=== PATIENT | male | born 1995 | race Caucasian/White ===

== ENCOUNTER 2021-01-26 18:57 | Emergency (ER) | payer OTHER ==
[2021-01-26 19:10] VITALS: BP 154/72; PULSE 98; RESP 18; TEMP 98.7
--- NOTE | 2021-01-26 19:52 | ED ---
Lower Extremity Injury HPI - General Chief Complaint: Extremity Injury, Lower Stated Complaint: Rt Knee Injury Time Seen by Provider: 01/26/21 19:11 Source: patient Mode of arrival: ambulatory Limitations: no limitations - History of Present Illness Initial Comments: 25-year-old male patient presents to the emergency department today for evaluation of right knee discomfort. Patient states he was laying softball about 3 days ago went to change directions well running and states that he had a fall, states that he injured his knee somehow. States that happened so fast he is unsure the exact mechanism of injury. States he has had knee swelling, states it feels very stiff. States he has difficulty straightening and are pending at all the way. Denies any redness or fever. States he has had issues with this knee in the past, no previous surgery. States pain worsens with walking. Patient denies any headache, neck pain, back pain, chest pain, s hortness of breath, dizziness, weakness, abdominal pain, nausea, vomiting, or difficulties with bowel movements or urination. - Related Data Home Medications Medication Instructions Recorded Confirmed Ibuprofen [Motrin Ib] 600 mg PO Q8H PRN 01/26/21 01/26/21 Allergies Allergy/AdvReac Type Severity Reaction Status Date / Time amoxicillin [Amoxicillin] Allergy Unknown Verified 01/26/21 19:59 Penicillins Allergy Unknown Verified 01/26/21 19:59 Review of Systems ROS Statement: Those systems with pertinent positive or pertinent negative responses have been documented in the HPI. ROS Other: All systems not noted in ROS Statement are negative. Past Medical History Past Medical History: No Reported History History of Any Multi-Drug Resistant Organisms: None Reported Past Surgical History: Orthopedic Surgery, Tonsillectomy Additional Past Surgical History / Comment(s): ANKLE, WRIST, Past Psychological History: No Psychological Hx Reported Smoking Status: Current every day smoker Past Alcohol Use History: Occasional Past Drug Use History: Marijuana General Exam Limitations: no limitations General appearance: alert, in no apparent distress, other (This is a well-devel oped, well-nourished adult male patient in no acute distress.) Respiratory exam: Present: normal lung sounds bilaterally. Absent: respiratory distress, wheezes, rales, rhonchi, stridor Cardiovascular Exam: Present: regular rate, normal rhythm, normal heart sounds. Absent: systolic murmur, diastolic murmur, rubs, gallop, clicks Extremities exam: Present: full ROM, normal capillary refill, joint swelling (Right knee), other (Or soft tissue swelling surrounding the right knee especially over the medial aspect. No pain or laxity with valgus or varus maneuvers. Negative drawer sign. It is otherwise pink, warm, dry. Cap refills less than 3 seconds. Pedal and posttibial pulses are 2+.). Absent: normal inspection, tenderness, pedal edema, calf tenderness Neurological exam: Present: alert, oriented X3, CN II-XII intact Psychiatric exam: Present: normal affect, normal mood Skin exam: Present: warm, dry, intact, normal color. Absent: rash Course Vital Signs 01/26/21 19:06 Temperature 98.7 F Pulse Rate 98 Respiratory 18 Rate Blood Pressure 154/72 O2 Sat by Pulse 99 Oximetry Medical Decision Making - Medical Decision Making 25-year-old male patient presents to the emergency department today for evaluation of right knee injury. Physical examination did reveal swelling about the knee joint. There is no overlying erythema. No laxity or pain with valgus or varus maneuvers. Negative drawer test. He was able to extend and flex the knee. X-ray showed small joint effusion. Did discuss findings and results with him. He is given Del wrap for compression and support. Instructed to follow- up with orthopedics for further evaluation as soon as possible. Return parameters were discussed in detail. He verbalizes understanding and agrees with this plan. My attending is Dr. Stanford. - Radiology Data Radiology results: report reviewed, image reviewed Joint effusion change compared to old exam. No fracture. Disposition Clinical Impression: Effusion, right knee Disposition: HOME SELF-CARE Condition: Good Instructions (If sedation given, give patient instructions): Swollen Knee Joint (ED) Additional Instructions: Rest, ice, elevate the right knee. Use Del wrap for comfort and support. Follow-up with orthopedics for further evaluation as soon as possible. Return for any new, worsening, or concerning symptoms. Is patient prescribed a controlled substance at d/c from ED?: No Referrals: Scott Razo DO [Doctor of Osteopathic Medicine] - 1-2 days Time of Disposition: 20:52
--- NOTE | 2021-01-26 20:32 | XR ---
EXAMINATION TYPE: XR knee complete RT DATE OF EXAM: 01/26/2021 COMPARISON: 03/02/2014 HISTORY: Pain TECHNIQUE: 3 views FINDINGS: I see no fracture nor dislocation. Joint spaces are fairly normal. There is small knee join t effusion. IMPRESSION: Joint effusion not changed compared to old exam. No fracture.
== END 2021-01-26 21:08 | disposition home or self-care (01) ==
LOC: EC 18:57
DX: M25.461 Effusion, right knee (principal); F17.200 Nicotine dependence, unspecified, uncomplicated; F12.90 Cannabis use, unspecified, uncomplicated; Z88.0 Allergy status to penicillin
CPT/HCPCS: 99283

== ENCOUNTER → 2021-03-12 | Outpatient (CLI) | payer OTHER | END | disposition home or self-care (01) | DX: S80.01XA Contusion of right knee, initial encounter (principal) ==